=== PATIENT | male | born 1995 | race Caucasian/White ===

== ENCOUNTER 2016-08-26 13:07 | Emergency (ER) | payer OTHER ==
--- NOTE | 2016-08-26 14:13 | DIAGNOSTIC IMAGING REPORT ---
PROCEDURE: XR CHEST 2 VIEW INDICATION: CHEST PAIN TECHNIQUE: PA and lateral views. COMPARISON: None. FINDINGS: Lungs are clear. Heart and mediastinum are normal. Thorax is normal. IMPRESSION: 1. Negative chest.
--- NOTE | 2016-08-26 16:15 | ED CLINICAL REPORT ---
Clinical Report - Physicians/Mid Levels [facility] [address] [place] [address] 08/26/2016 13:09 Patient: PAVEL BONILLA Time Seen: 13:25 Aug 26 2016. Arrived- By ambulance. Historian- patient and EMS personnel. HISTORY OF PRESENT ILLNESS Chief Complaint: DRUG OVERDOSE. Toxic symptoms present in ED with drowsiness. Single drug taken. Multiple drugs taken. No self-injury. No situational problems or alcohol recently. The symptoms are described as mild. (Pt has a history of drug use, meth and heroin smoking in his nature as he reports, and states injected to the right forearm heroin, was found by bystanders given Narcan and arose. Does not previously use iv.). REVIEW OF SYSTEMS No headache, weakness, chest pain, palpitations or diarrhea. All systems otherwise negative, except as recorded above. SOCIAL HISTORY History of drug use. Has social support. Has place to stay. ADDITIONAL NOTES The nursing notes have been reviewed. PHYSICAL EXAM Vital Signs: 08/26/2016 13:10 BP: 113/65. HR: 80. RR: 16. O2 saturation: 100%. Temp: 97.4 F. Appearance: Alert. Eyes: Pupils equal, round and reactive to light. No nystagmus. ENT: Normal ENT inspection. Neck: Normal inspection. CVS: Normal heart rate and rhythm. Heart sounds normal. Respiratory: No respiratory distress. Breath sounds normal. No decreased air movement. Abdomen: Soft and nontender. Skin: (small forearm puncture sonja noted). Neuro: Alert. Oriented X 3. Mood/affect normal. Cranial nerves normal (as tested). No cerebellar findings. No motor deficit. LABS, X-RAYS, AND EKG EKG: EKG time: (1330). No acute process. No acute ischemia. Rate: 74. Normal P waves. Normal ESPERANZA. Normal QRS complex. Normal axis. Normal ST and T waves and QT. The study has been interpreted contemporaneously. The study has been independently viewed by me. The EKG appears to be a good tracing. Chest X-ray: (IMPRESSION: 1. Negative chest. Electronically Final signed by:Rodolfo Vanegas MD 08/26/2016 2:14:01 PM). Laboratory Tests: CBC w Diff: ([facility]: 08/26/2016 13:30) ( [facility] 08/26/2016 13:48) Final results Test Result Flag Units (Reference) WHITE BLOOD COUNT 14.6 H K/uL (4.5-11.5) RED BLOOD COUNT 4.70 M/uL (4.50-5.90) HEMOGLOBIN 13.1 L gm/dL (13.5-17.5) HEMATOCRIT 39.1 L % (41.0-53.0) MEAN CELL VOLUME 83 fL (80-100) MEAN CORPUSCULAR HGB 28 pg (26-34) MEAN CORPUSCULAR HGB CONC 34 g/dL (31-37) RED CELL DISTRIBUTION WIDTH 12.8 % (11.6-14.8) PLATELET COUNT 314 K/uL (150-400) NEUTROPHIL % 81.8 H % (50-75) LYMPH % 10.6 L % (25-40) MONO % 5.4 % (3-14) EOSINOPHIL % 1.7 % (0-4) BASOPHIL % 0.5 % (0-2) PT with INR: ([facility]I: 08/26/2016 13:30) ( [facility] 08/26/2016 13:58) Final results Test Result Flag Units (Reference) INR 1.1 (0.8-1.2) Low Intensity Therapy: INR 1.5-2.0 PT range 18.5-23.1Mod.Intensity Therapy: INR 2.0-3.0 PT range 23.1-31.5High Intensity Therapy: INR 2.5-3.5 PT range 27.4-35.5High Intensity Therapy 2: INR 3.0-4.0 PT range 31.5-39.3 APTT 28 SECONDS (24-34) Urine Drug Screen: ([facility]I: 08/26/2016 14:33) ( [facility] 08/26/2016 15:19) Final results Test Result Flag Units (Reference) AMPHETAMINE/METHAMPHETAMINE POSITIVE H (NEGATIVE) BARBITURATE NEGATIVE (NEGATIVE) BENZODIAZEPINE NEGATIVE (NEGATIVE) CANNABINOID NEGATIVE (NEGATIVE) COCAINE NEGATIVE (NEGATIVE) ECSTASY POSITIVE H (NEGATIVE) METHADONE NEGATIVE (NEGATIVE) OPIATE POSITIVE H (NEGATIVE) The urine drug screen is a qualitative screening test fordrug overdose and abuse. All screen results should beconsidered as presumptive.Drugs screened for are as follows:BenzodiazepinesCocaineAmphetamines/MetamphetaminesTHC (Tetrahydrocannabinol)OpiatesBarbituratesEcstasyMethadonePositive results are unconfirmed. For confirmation, notifythe lab for the specimen to be sent to the reference lab.All confirmations must be performed by a differentmethodology.The ingestion of natural herbal and plant productscontaining Ephedra/Ephedra metabolites can produce in urineone or more substances capable of cross reacting withamphetamine/methamphetamine immunoassays. These testsprovide a preliminary result only. A more specificalternative chemical method must be used to obtain aconfirmed analytical result. Ethyl Alcohol: ([facility]I: 08/26/2016 13:30) ( [facility] 08/26/2016 14:11) Final results Test Result Flag Units (Reference) ETHYL ALCOHOL < 3.0 L mg/dL (3-10) BNP: ([facility]: 08/26/2016 13:30) ( [facility] 08/26/2016 14:12) Final results Test Result Flag Units (Reference) B-TYPE NATRIURETIC PEPTIDE < 5.0 L pg/ml (5-100) CHEM 13 PANEL: ([facility]I: 08/26/2016 13:30) ( [facility] 08/26/2016 15:15) Final results Test Result Flag Units (Reference) GLUCOSE 162 H mg/dL (70-110) BUN 21 H mg/dL (7-18) CREATININE 1.2 mg/dL (0.6-1.3) Estimated GFR >60 mL/min Estimated GFR- >60 mL/min Note: Persistent reduction over 3 months in eGFR<60 mL/min/1.73 m2 defines CKD. Patients with eGFR values>=60 mL/min/1.73 m2 may also have CKD if evidence ofpersistent proteinuria. Additional information may be foundat www.kidney.org. SODIUM 138 mmol/L (136-145) POTASSIUM 3.8 mmol/L (3.5-5.1) CHLORIDE 101 mmol/L (98-107) CARBON DIOXIDE 26 mmol/L (21-32) CALCIUM 8.9 mg/dL (8.5-10.1) TOTAL PROTEIN 7.7 g/dL (6.4-8.2) ALBUMIN 4.0 g/dL (3.3-5.0) BILIRUBIN, TOTAL 0.8 mg/dL (0.0-1.0) ALKALINE PHOSPHATASE 69 U/L (46-116) AST (SGOT) 50 H U/L (15-37) ALT (SGPT) 45 U/L (12-78) MAGNESIUM 2.2 mg/dL (1.8-2.4) TROPONIN I 0.05 ng/mL (0.00-1.5) TROPONIN REFERENCE RANGE:<0.1 NEGATIVE0.1-1.5 INDETERMINANT>1.5 POSITIVE CPK 1433 H U/L (24-260) CK-MB 7.5 H ng/mL (0.5-3.2) %CKMB 0.5 % (0.0-4.0) . PROGRESS AND PROCEDURES Course of Care: Patient here in the ER is alert awake and oriented , drowsy at times, able to ambulate, negative neuro exam. Patient previously does not use injection IV use, however did today. Overdose, arouse with Narcan in the field. No other symptomsin the emergency department. EKG chest x-ray benign, otherwise labs benign beyond leukocytosis, Of unclear etiology, may be stress related or induced. Patient to follow up outpatient. Polysubstance abuse.. 08/26/2016 15:31 BP: 112/88. HR: 65. RR: 14. O2 saturation: 100%. 08/26/2016 15:28 BP: 142/81. HR: 85. RR: 19. O2 saturation: 96%. Pain level now: 0/10. Patient is stable. Symptoms better. Patient/family counseled. Disposition: Discharged. CLINICAL IMPRESSION Accidental multi-drug overdose. (polysubstance). (Electronically signed by Jasmyn Hunt P.A.-C 08/26/2016 16:53)
--- NOTE | 2016-08-26 16:15 | ED CLINICAL REPORT ---
Clinical Report - Physicians/Mid Levels [facility] [address] [place] [address] 08/26/2016 13:09 Patient: PAVEL BONILLA Time Seen: 13:25 Aug 26 2016. Arrived- By ambulance. Historian- patient and EMS personnel. HISTORY OF PRESENT ILLNESS Chief Complaint: DRUG OVERDOSE. Toxic symptoms present in ED with drowsiness. Single drug taken. Multiple drugs taken. No self-injury. No situational problems or alcohol recently. The symptoms are described as mild. (Pt has a history of drug use, meth and heroin smoking in his nature as he reports, and states injected to the right forearm heroin, was found by bystanders given Narcan and arose. Does not previously use iv.). REVIEW OF SYSTEMS No headache, weakness, chest pain, palpitations or diarrhea. All systems otherwise negative, except as recorded above. SOCIAL HISTORY History of drug use. Has social support. Has place to stay. ADDITIONAL NOTES The nursing notes have been reviewed. PHYSICAL EXAM Vital Signs: 08/26/2016 13:10 BP: 113/65. HR: 80. RR: 16. O2 saturation: 100%. Temp: 97.4 F. Appearance: Alert. Eyes: Pupils equal, round and reactive to light. No nystagmus. ENT: Normal ENT inspection. Neck: Normal inspection. CVS: Normal heart rate and rhythm. Heart sounds normal. Respiratory: No respiratory distress. Breath sounds normal. No decreased air movement. Abdomen: Soft and nontender. Skin: (small forearm puncture sonja noted). Neuro: Alert. Oriented X 3. Mood/affect normal. Cranial nerves normal (as tested). No cerebellar findings. No motor deficit. LABS, X-RAYS, AND EKG EKG: EKG time: (1330). No acute process. No acute ischemia. Rate: 74. Normal P waves. Normal ESPERANZA. Normal QRS complex. Normal axis. Normal ST and T waves and QT. The study has been interpreted contemporaneously. The study has been independently viewed by me. The EKG appears to be a good tracing. Chest X-ray: (IMPRESSION: 1. Negative chest. Electronically Final signed by:Rodolfo Vanegas MD 08/26/2016 2:14:01 PM). Laboratory Tests: CBC w Diff: ([facility]I: 08/26/2016 13:30) ( [facility] 08/26/2016 13:48) Final results Test Result Flag Units (Reference) WHITE BLOOD COUNT 14.6 H K/uL (4.5-11.5) RED BLOOD COUNT 4.70 M/uL (4.50-5.90) HEMOGLOBIN 13.1 L gm/dL (13.5-17.5) HEMATOCRIT 39.1 L % (41.0-53.0) MEAN CELL VOLUME 83 fL (80-100) MEAN CORPUSCULAR HGB 28 pg (26-34) MEAN CORPUSCULAR HGB CONC 34 g/dL (31-37) RED CELL DISTRIBUTION WIDTH 12.8 % (11.6-14.8) PLATELET COUNT 314 K/uL (150-400) NEUTROPHIL % 81.8 H % (50-75) LYMPH % 10.6 L % (25-40) MONO % 5.4 % (3-14) EOSINOPHIL % 1.7 % (0-4) BASOPHIL % 0.5 % (0-2) PT with INR: ([facility]I: 08/26/2016 13:30) ( [facility] 08/26/2016 13:58) Final results Test Result Flag Units (Reference) INR 1.1 (0.8-1.2) Low Intensity Therapy: INR 1.5-2.0 PT range 18.5-23.1Mod.Intensity Therapy: INR 2.0-3.0 PT range 23.1-31.5High Intensity Therapy: INR 2.5-3.5 PT range 27.4-35.5High Intensity Therapy 2: INR 3.0-4.0 PT range 31.5-39.3 APTT 28 SECONDS (24-34) Urine Drug Screen: ([facility]I: 08/26/2016 14:33) ( [facility] 08/26/2016 15:19) Final results Test Result Flag Units (Reference) AMPHETAMINE/METHAMPHETAMINE POSITIVE H (NEGATIVE) BARBITURATE NEGATIVE (NEGATIVE) BENZODIAZEPINE NEGATIVE (NEGATIVE) CANNABINOID NEGATIVE (NEGATIVE) COCAINE NEGATIVE (NEGATIVE) ECSTASY POSITIVE H (NEGATIVE) METHADONE NEGATIVE (NEGATIVE) OPIATE POSITIVE H (NEGATIVE) The urine drug screen is a qualitative screening test fordrug overdose and abuse. All screen results should beconsidered as presumptive.Drugs screened for are as follows:BenzodiazepinesCocaineAmphetamines/MetamphetaminesTHC (Tetrahydrocannabinol)OpiatesBarbituratesEcstasyMethadonePositive results are unconfirmed. For confirmation, notifythe lab for the specimen to be sent to the reference lab.All confirmations must be performed by a differentmethodology.The ingestion of natural herbal and plant productscontaining Ephedra/Ephedra metabolites can produce in urineone or more substances capable of cross reacting withamphetamine/methamphetamine immunoassays. These testsprovide a preliminary result only. A more specificalternative chemical method must be used to obtain aconfirmed analytical result. Ethyl Alcohol: (NHI: 08/26/2016 13:30) ( [facility] 08/26/2016 14:11) Final results Test Result Flag Units (Reference) ETHYL ALCOHOL < 3.0 L mg/dL (3-10) BNP: ([facility]I: 08/26/2016 13:30) ( [facility] 08/26/2016 14:12) Final results Test Result Flag Units (Reference) B-TYPE NATRIURETIC PEPTIDE < 5.0 L pg/ml (5-100) CHEM 13 PANEL: ([facility]I: 08/26/2016 13:30) ( [facility] 08/26/2016 15:15) Final results Test Result Flag Units (Reference) GLUCOSE 162 H mg/dL (70-110) BUN 21 H mg/dL (7-18) CREATININE 1.2 mg/dL (0.6-1.3) Estimated GFR >60 mL/min Estimated GFR- >60 mL/min Note: Persistent reduction over 3 months in eGFR<60 mL/min/1.73 m2 defines CKD. Patients with eGFR values>=60 mL/min/1.73 m2 may also have CKD if evidence ofpersistent proteinuria. Additional information may be foundat www.kidney.org. SODIUM 138 mmol/L (136-145) POTASSIUM 3.8 mmol/L (3.5-5.1) CHLORIDE 101 mmol/L (98-107) CARBON DIOXIDE 26 mmol/L (21-32) CALCIUM 8.9 mg/dL (8.5-10.1) TOTAL PROTEIN 7.7 g/dL (6.4-8.2) ALBUMIN 4.0 g/dL (3.3-5.0) BILIRUBIN, TOTAL 0.8 mg/dL (0.0-1.0) ALKALINE PHOSPHATASE 69 U/L (46-116) AST (SGOT) 50 H U/L (15-37) ALT (SGPT) 45 U/L (12-78) MAGNESIUM 2.2 mg/dL (1.8-2.4) TROPONIN I 0.05 ng/mL (0.00-1.5) TROPONIN REFERENCE RANGE:<0.1 NEGATIVE0.1-1.5 INDETERMINANT>1.5 POSITIVE CPK 1433 H U/L (24-260) CK-MB 7.5 H ng/mL (0.5-3.2) %CKMB 0.5 % (0.0-4.0) . PROGRESS AND PROCEDURES Course of Care: Patient here in the ER is alert awake and oriented , drowsy at times, able to ambulate, negative neuro exam. Patient previously does not use injection IV use, however did today. Overdose, arouse with Narcan in the field. No other symptomsin the emergency department. EKG chest x-ray benign, otherwise labs benign beyond leukocytosis, Of unclear etiology, may be stress related or induced. Patient to follow up outpatient. Polysubstance abuse.. 08/26/2016 15:31 BP: 112/88. HR: 65. RR: 14. O2 saturation: 100%. 08/26/2016 15:28 BP: 142/81. HR: 85. RR: 19. O2 saturation: 96%. Pain level now: 0/10. Patient is stable. Symptoms better. Patient/family counseled. Disposition: Discharged. CLINICAL IMPRESSION Accidental multi-drug overdose. (polysubstance). (Electronically signed by Jasmyn Hunt P.A.-C 08/26/2016 16:53)
--- NOTE | 2016-08-26 16:16 | ED ORDER SUMMARY ---
..... Patient: PAVEL BONILLA N OrderSheet [facility] VisitID: [id number] [place] [address] 20y, M Registration Date/Time: 08/26/2016 ORDER SHEET Weight: 81.6 kg Allergies: No Known Drug Allergy GENERAL ORDERS: Chest 2V Urgent (13:08/26/2016 EKoroleva P.A.-C) (13:23 CHernandez R.N.) County Engineer (Continuous) (13:08/26/2016 EKoroleva P.A.-C) (Ack 13:23 CHernandez R.N.) (13:23 CHernandez R.N.) Cardiac Panel Stat (13:08/26/2016 EKoroleva P.A.-C) (13:23 CHernandez R.N.) PT with INR Urgent (13:08/26/2016 EKoroleva P.A.-C) (13:23 CHernandez R.N.) PTT Urgent (13:08/26/2016 EKoroleva P.A.-C) (13:23 CHernandez R.N.) BNP Urgent (13:08/26/2016 EKoroleva P.A.-C) (13:23 CHernandez R.N.) EKG - ER Stat (13:08/26/2016 EKoroleva P.A.-C) (13:23 CHernandez R.N.) Urine Drug Screen Urgent (13:08/26/2016 EKoroleva P.A.-C) (Ack 13:27 LMuller) (13:33 CHernandez R.N.) Ethyl Alcohol Urgent (13:08/26/2016 EKoroleva P.A.-C) (Ack 13:27 LMuller) (13:32 LMuller) MEDICATION ORDERS: IV FLUIDS: IV Saline Lock (13:13 08/26/2016 EKoroleva P.A.-C) (Ack 13:23 CHernandez R.N.) (13:34 CHernandez R.N.) IV NS : initial bolus 1000 mL (1000 mL/hr), then 1000 mL/hr for X1 (NOW); Chapin (13:21 08/26/2016 Gordon Bhatia) (Ack 13:23 Clarita May) (13:48 Clarita May) ORDER SHEET NOTES: [Electronically signed by Ken Parker R.N. (16:38 08/26/2016)] [Electronically signed by Jasmyn Hunt P.A.-C (16:53 08/26/2016)] [Electronically signed by Ada Abrams R.N. (10:01 08/29/2016)] [Electronically signed by Ada Abrams R.N. (12:58 09/03/2016)] [Electronically signed by Ada Abrams R.N. (13:01 09/03/2016)] [Electronically signed by Ada Abrams R.N. (06:45 09/16/2016)] [Electronically signed by Tori White R.N. (07:51 09/25/2016)] [Electronically locked/signed by Ken Parker R.N. (16:38 08/26/2016)]
--- NOTE | 2016-08-26 16:16 | ED NURSING NOTES ---
Clinical Report - Nurses [facility] [place] [address] 08/26/2016 13:09 Patient: PAVEL BONILLA TRIAGE Triage time 13:10. Acuity: LEVEL 2. Chief Complaint: DRUG OVERDOSE (heroin). --13:18 Ken Parker R.N. 13:10 08/26/16. BP: 113/65. HR: 80. RR: 16. O2 saturation: 100% on room air. Temp: 97.4 F. Pain level now: uncertain. --13:18 Ken Parker R.N. Weight: 81.6 kg. Height/Length: 72 inches. BMI: 24.4. --13:18 Ken Parker R.N. Medications None. --13:13 Ken Parker R.N. Medication/allergy information source: the patient and EMS. --13:18 Ken Parker R.N. Allergies No Known Drug Allergy. --13:13 Ken Parker R.N. History Arrived by EMS. Historian: EMS. ( Injected himself on his right forearm with heroin, passed out and bystander performed CPR. Given total of 4mg of Narcan. Now awake and alert c/o extreme thirst.). This occurred today. Treatment MUSIC THERAPIST: (narcan). PAST MEDICAL HX: Unknown. SURGERY HX: Knee surgery. SOCIAL HX: Heavy tobacco smoker (cigarette)- less than 1 pack per day. Regular alcohol use; consumes liquor drinks. (3 days ago). History of drug use: heroin. Recently used drugs just prior to arrival and today. --13:18 Ken Parker R.N. Interventions ID band on patient. To room. --13:18 Ken Parker R.N. PHYSICAL ASSESSMENT To room via stretcher. GENERAL / NEURO / PSYCH: Appears anxious. Behavior appears abnormal. Patient appears calm and cooperative. The patient is disoriented to place. Patient's speech is slurred. He appears to have altered thought processes, verbalized as "feeling outside of my body". Pupillary exam: Right pupil 3mm, round and briskly reactive with accommodation. Left pupil: round and briskly reactive to light directly and with accommodation. RESPIRATORY: Respirations not labored. Breath sounds within normal limits. CVS: Normal sinus rhythm noted. Pulses: right radial 3+ and left radial 3+. Capillary refill less than 2 seconds. GI / : Abdomen soft and nontender. Bowel sounds within normal limits. SKIN: Skin intact. Skin is warm and dry. Skin color is within normal limits. --13:21 Ken Parker R.N. NURSING PROGRESS NOTES Cardiac rhythm: normal sinus rhythm. Oxygen administered at 2 liters. cardiac monitor, pulse oximeter, end tidal CO2 monitor and NIBP monitor placed on patient; threat monitoring analyst- Lead II; monitor alarms on. Head of bed elevated. Reassurance given. Patient identifiers checked. Call light placed in reach. Side rails up x 2. Bed placed in lowest position. Brakes of bed on. Patient ready for evaluation- chart flagged and ED physician and SOCCER COACH notified. --13:22 Ken Parker R.N. 13:29 08/26/2016 Site #1 started via IV in the left antecubital space with an 20g angiocath; one attempt. Blood drawn: rainbow set. Labeled in the presence of the patient and sent to the lab. Saline lock flushed with 10 mL saline. --13:34 Ken Parker R.N. Checked patient name and birthdate: patient confirmed. Blood samples drawn from the left antecubital space peripheral IV site by nurse ; labeled in presence of the patient and sent to lab: rainbow set: cardiac enzymes (1st set). Line flushed with 10 mL normal saline post blood draw. --13:35 Ken Parker R.N. 13:47 08/26/2016 Started IV Fluids IV NS (Saline); bolus of 1000 mL over 1 hour(s) via site #1 via IV pump. Allergies verified and confirmed 5 rights. IV patency established. IV site checked: no pain, redness, or swelling. IV flushed thoroughly pre- and post-medication administration. --13:48 Ken Parker R.N. 13:51 08/26/16. BP: 118/67. HR: 67. RR: 14. O2 saturation: 96%. --13:53 Ken Parker R.N. Cardiac rhythm: normal sinus rhythm. Reassessment after intervention (xray). Overall patient status is the same- he states feels the same. GENERAL / NEURO / PSYCH: Patient is calm and cooperative. Alert. Decreased awareness opens eyes to voice; drowsy. RESPIRATORY: No respiratory distress. GI / : No vomiting noted. SKIN: Skin is warm and dry. Skin color within normal limits. --13:53 Ken Parker R.N. EKG time: (1330). EKG was performed by a tech and shown to the PA. --14:09 Christiane Cordon, ER Tech1 14:19 08/26/16. BP: 107/67. HR: 94. RR: 21. O2 saturation: 99%. --14:20 Ken Parker R.N. ( Pt attempting to urinate on a urinal to provide urine sample, standing at the bedside.). GENERAL / NEURO / PSYCH: Patient is calm and cooperative. Alert. RESPIRATORY: No respiratory distress. GI / : No vomiting noted. SKIN: Skin is warm and dry. --14:20 Ken Parker R.N. 14:32 08/26/16. BP: 115/63. HR: 65. RR: 15. O2 saturation: 98%. --14:34 Ken Parker R.N. Cardiac rhythm: normal sinus rhythm. Urine toxicology screen obtained and sent to lab. Reassessment after fluids administered. Overall patient status is improved- he states feels better. ( Patient walked independently to the restroom and was able to void. Urine sent to the lab.). GENERAL / NEURO / PSYCH: Patient is calm and cooperative. Alert. Decreased awareness disoriented to place; opens eyes to voice; drowsy. RESPIRATORY: No respiratory distress. GI / : No vomiting noted. SKIN: Skin is warm. Skin color within normal limits. --14:34 Ken Parker R.N. 14:48 08/26/2016 IV Fluids IV NS Discontinued: bag #1 infused. Total amount infused: 1000 mL. IV patency established. IV site checked: no pain, redness, or swelling. IV flushed thoroughly. --14:48 Ken Parker R.N. 15:28 08/26/16. BP: 142/81. HR: 85. RR: 19. O2 saturation: 96%. Pain level now: 0/10. --15:29 Ken Parker R.N. Reassessment after intervention (IV start). Overall patient status is the same- he states feels the same. GENERAL / NEURO / PSYCH: Patient is calm and cooperative. Alert. Oriented X 4. RESPIRATORY: The patient reports difficulty breathing is still present and currently moderate in severity. SKIN: Skin is warm and dry. Skin color within normal limits. --15:29 Ken Parker R.N. Cardiac rhythm: normal sinus rhythm. Overall patient status is improved- he states feels the same. GENERAL / NEURO / PSYCH: Patient is calm and cooperative. Alert. RESPIRATORY: No respiratory distress. GI / : No vomiting noted. SKIN: Skin is warm and dry. Skin color within normal limits. --15:32 Ken Parker R.N. 15:31 08/26/16. BP: 112/88. HR: 65. RR: 14. O2 saturation: 100%. --15:32 Ken Parker R.N. 16:01 08/26/16. BP: 105/64. HR: 74. RR: 14. O2 saturation: 100%. --16:02 Ken Parker R.N. Cardiac rhythm: normal sinus rhythm. The patient is resting quietly and sleeping. GENERAL / NEURO / PSYCH: Patient is calm and cooperative. RESPIRATORY: No respiratory distress. GI / : No vomiting noted. SKIN: Skin is warm. Skin color within normal limits. --16:02 Ken Parker R.N. 16:22 08/26/2016 IV Saline Lock Drip IV Discontinued: discontinued upon discharge. IV patency established. IV site checked: no pain, redness, or swelling. IV flushed thoroughly. --16:22 Ken Parker R.N. 16:23 08/26/2016 Site #1 removed upon discharge. Manual pressure applied. --16:23 Ken Parker R.N. Reassessment after fluids administered and intervention. ( stogie packer and SOCCER COACH aware pt is unable to provide information on who will pick him up. Patient able to walk and ambulate to bathroom.). GENERAL / NEURO / PSYCH: Patient is calm and cooperative. Alert. Decreased awareness disoriented to place; drowsy. RESPIRATORY: No respiratory distress. GI / : No vomiting noted. SKIN: Skin is warm and dry. Skin color within normal limits. --16:25 Ken Parker R.N. 16:22 08/26/16. BP: 122/78. HR: 72. RR: 16. O2 saturation: 100%. Temp: 98 F. Pain level now: 0/10. --16:25 Ken Parker R.N. DISPOSITION / DISCHARGE Cardiac rhythm: normal sinus rhythm. Condition at departure: stable. ( pt able to walk and ambulate steady on his gait, imaging tech walked him to ). Discharge instructions provided and reviewed with the patient. Patient verbalized understanding. Written instructions provided in Welsh. The patient was discharged by the nurse practitioner. He was discharged home. He left the Emergency Department ambulatory. --16:37 Ken Parker R.N. 16:35 08/26/16. BP: 132/75. HR: 68. RR: 16. O2 saturation: 100%. Temp: 97.8 F. Pain level now: 0/10. --16:37 Ken Parker R.N. ( ER nurse discharge planner Chu aware and present when pt left the room). --16:37 Ken Parker R.N. Locked/Released at 09/25/2016 7:51 by Tori White R.N.
--- NOTE | 2016-08-26 16:16 | ED ORDER SUMMARY ---
..... Patient: PAVEL BONILLA N OrderSheet [facility] VisitID: [id number] [place] [address] 20y, M Registration Date/Time: 08/26/2016 ORDER SHEET Weight: 81.6 kg Allergies: No Known Drug Allergy GENERAL ORDERS: Chest 2V Urgent (13:08/26/2016 EKoroleva P.A.-C) (13:23 CHernandez R.N.) Central Processing Technician (Continuous) (13:08/26/2016 EKoroleva P.A.-C) (Ack 13:23 CHernandez R.N.) (13:23 CHernandez R.N.) Cardiac Panel Stat (13:08/26/2016 EKoroleva P.A.-C) (13:23 CHernandez R.N.) PT with INR Urgent (13:08/26/2016 EKoroleva P.A.-C) (13:23 CHernandez R.N.) PTT Urgent (13:08/26/2016 EKoroleva P.A.-C) (13:23 CHernandez R.N.) BNP Urgent (13:08/26/2016 EKoroleva P.A.-C) (13:23 CHernandez R.N.) EKG - ER Stat (13:08/26/2016 EKoroleva P.A.-C) (13:23 CHernandez R.N.) Urine Drug Screen Urgent (13:08/26/2016 EKoroleva P.A.-C) (Ack 13:27 LMuller) (13:33 CHernandez R.N.) Ethyl Alcohol Urgent (13:08/26/2016 EKoroleva P.A.-C) (Ack 13:27 LMuller) (13:32 LMuller) MEDICATION ORDERS: IV FLUIDS: IV Saline Lock (13:13 08/26/2016 EKoroleva P.A.-C) (Ack 13:23 CHernandez R.N.) (13:34 CHernandez R.N.) IV NS : initial bolus 1000 mL (1000 mL/hr), then 1000 mL/hr for X1 (NOW); Chapin (13:21 08/26/2016 Gordon Bhatia) (Ack 13:23 Clarita May) (13:48 Clarita May) ORDER SHEET NOTES: [Electronically signed by Ken Parker R.N. (16:38 08/26/2016)] [Electronically signed by Jasmyn Hunt P.A.-C (16:53 08/26/2016)] [Electronically signed by Ada Abrams R.N. (10:01 08/29/2016)] [Electronically signed by Ada Abrams R.N. (12:58 09/03/2016)] [Electronically signed by Ada Abrams R.N. (13:01 09/03/2016)] [Electronically signed by Ada Abrams R.N. (06:45 09/16/2016)] [Electronically signed by Tori White R.N. (07:51 09/25/2016)] [Electronically locked/signed by Ken Parker R.N. (16:38 08/26/2016)]
--- NOTE | 2016-08-26 16:16 | ED NURSING NOTES ---
Clinical Report - Nurses [facility] [place] [address] 08/26/2016 13:09 Patient: PAVEL BONILLA TRIAGE Triage time 13:10. Acuity: LEVEL 2. Chief Complaint: DRUG OVERDOSE (heroin). --13:18 Ken Parker R.N. 13:10 08/26/16. BP: 113/65. HR: 80. RR: 16. O2 saturation: 100% on room air. Temp: 97.4 F. Pain level now: uncertain. --13:18 Ken Parker R.N. Weight: 81.6 kg. Height/Length: 72 inches. BMI: 24.4. --13:18 Ken Parker R.N. Medications None. --13:13 Ken Parker R.N. Medication/allergy information source: the patient and EMS. --13:18 Ken Parker R.N. Allergies No Known Drug Allergy. --13:13 Ken Parker R.N. History Arrived by EMS. Historian: EMS. ( Injected himself on his right forearm with heroin, passed out and bystander performed CPR. Given total of 4mg of Narcan. Now awake and alert c/o extreme thirst.). This occurred today. 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 PAST MEDICAL HX: Unknown. SURGERY HX: Knee surgery. SOCIAL HX: Heavy tobacco smoker (cigarette)- less than 1 pack per day. Regular alcohol use; consumes liquor drinks. (3 days ago). History of drug use: heroin. Recently used drugs just prior to arrival and today. --13:18 Ken Parker R.N. Interventions ID band on patient. To room. --13:18 Ken Parker R.N. PHYSICAL ASSESSMENT To room via stretcher. GENERAL / NEURO / PSYCH: Appears anxious. Behavior appears abnormal. Patient appears calm and cooperative. The patient is disoriented to place. Patient's speech is slurred. He appears to have altered thought processes, verbalized as "feeling outside of my body". Pupillary exam: Right pupil 3mm, round and briskly reactive with accommodation. Left pupil: round and briskly reactive to light directly and with accommodation. RESPIRATORY: Respirations not labored. Breath sounds within normal limits. CVS: Normal sinus rhythm noted. Pulses: right radial 3+ and left radial 3+. Capillary refill less than 2 seconds. GI / : Abdomen soft and nontender. Bowel sounds within normal limits. SKIN: Skin intact. Skin is warm and dry. Skin color is within normal limits. --13:21 Ken Parekr R.N. NURSING PROGRESS NOTES Cardiac rhythm: normal sinus rhythm. Oxygen administered at 2 liters. manager monitoring, pulse oximeter, end tidal CO2 monitor and NIBP monitor placed on patient; clinical research monitor- Lead II; monitor alarms on. Head of bed elevated. Reassurance given. Patient identifiers checked. Call light placed in reach. Side rails up x 2. Bed placed in lowest position. Brakes of bed on. Patient ready for evaluation- chart flagged and ED physician and PARIMUTUEL TICKET CHECKER notified. --13:22 Ken Parker R.N. 13:29 08/26/2016 Site #1 started via IV in the left antecubital space with an 20g angiocath; one attempt. Blood drawn: rainbow set. Labeled in the presence of the patient and sent to the lab. Saline lock flushed with 10 mL saline. --13:34 Ken Parker R.N. Checked patient name and birthdate: patient confirmed. Blood samples drawn from the left antecubital space peripheral IV site by nurse ; labeled in presence of the patient and sent to lab: rainbow set: cardiac enzymes (1st set). Line flushed with 10 mL normal saline post blood draw. --13:35 Ken Parker R.N. 13:47 08/26/2016 Started IV Fluids IV NS (Saline); bolus of 1000 mL over 1 hour(s) via site #1 via IV pump. Allergies verified and confirmed 5 rights. IV patency established. IV site checked: no pain, redness, or swelling. IV flushed thoroughly pre- and post-medication administration. --13:48 Ken Parker R.N. 13:51 08/26/16. BP: 118/67. HR: 67. RR: 14. O2 saturation: 96%. --13:53 Ken Parker R.N. Cardiac rhythm: normal sinus rhythm. Reassessment after intervention (xray). Overall patient status is the same- he states feels the same. GENERAL / NEURO / PSYCH: Patient is calm and cooperative. Alert. Decreased awareness opens eyes to voice; drowsy. RESPIRATORY: No respiratory distress. GI / : No vomiting noted. SKIN: Skin is warm and dry. Skin color within normal limits. --13:53 Ken Parker R.N. EKG time: (1330). EKG was performed by a tech and shown to the PA. --14:09 Christiane Cordon, ER Tech1 14:19 08/26/16. BP: 107/67. HR: 94. RR: 21. O2 saturation: 99%. --14:20 Ken Parker R.N. ( Pt attempting to urinate on a urinal to provide urine sample, standing at the bedside.). GENERAL / NEURO / PSYCH: Patient is calm and cooperative. Alert. RESPIRATORY: No respiratory distress. GI / : No vomiting noted. SKIN: Skin is warm and dry. --14:20 Ken Parker R.N. 14:32 08/26/16. BP: 115/63. HR: 65. RR: 15. O2 saturation: 98%. --14:34 Ken Parker R.N. Cardiac rhythm: normal sinus rhythm. Urine toxicology screen obtained and sent to lab. Reassessment after fluids administered. Overall patient status is improved- he states feels better. ( Patient walked independently to the restroom and was able to void. Urine sent to the lab.). GENERAL / NEURO / PSYCH: Patient is calm and cooperative. Alert. Decreased awareness disoriented to place; opens eyes to voice; drowsy. RESPIRATORY: No respiratory distress. GI / : No vomiting noted. SKIN: Skin is warm. Skin color within normal limits. --14:34 Ken Parker R.N. 14:48 08/26/2016 IV Fluids IV NS Discontinued: bag #1 infused. Total amount infused: 1000 mL. IV patency established. IV site checked: no pain, redness, or swelling. IV flushed thoroughly. --14:48 Ken Parker R.N. 15:28 08/26/16. BP: 142/81. HR: 85. RR: 19. O2 saturation: 96%. Pain level now: 0/10. --15:29 Ken Parker R.N. Reassessment after intervention (IV start). Overall patient status is the same- he states feels the same. GENERAL / NEURO / PSYCH: Patient is calm and cooperative. Alert. Oriented X 4. RESPIRATORY: The patient reports difficulty breathing is still present and currently moderate in severity. SKIN: Skin is warm and dry. Skin color within normal limits. --15:29 Ken Parker R.N. Cardiac rhythm: normal sinus rhythm. Overall patient status is improved- he states feels the same. GENERAL / NEURO / PSYCH: Patient is calm and cooperative. Alert. RESPIRATORY: No respiratory distress. GI / : No vomiting noted. SKIN: Skin is warm and dry. Skin color within normal limits. --15:32 Ken Parker R.N. 15:31 08/26/16. BP: 112/88. HR: 65. RR: 14. O2 saturation: 100%. --15:32 Ken Parker R.N. 16:01 08/26/16. BP: 105/64. HR: 74. RR: 14. O2 saturation: 100%. --16:02 Ken Parker R.N. Cardiac rhythm: normal sinus rhythm. The patient is resting quietly and sleeping. GENERAL / NEURO / PSYCH: Patient is calm and cooperative. RESPIRATORY: No respiratory distress. GI / : No vomiting noted. SKIN: Skin is warm. Skin color within normal limits. --16:02 Ken Parker R.N. 16:22 08/26/2016 IV Saline Lock Drip IV Discontinued: discontinued upon discharge. IV patency established. IV site checked: no pain, redness, or swelling. IV flushed thoroughly. --16:22 Ken Parker R.N. 16:23 08/26/2016 Site #1 removed upon discharge. Manual pressure applied. --16:23 Ken Parker R.N. Reassessment after fluids administered and intervention. ( employee relations representative and PARIMUTUEL TICKET CHECKER aware pt is unable to provide information on who will pick him up. Patient able to walk and ambulate to bathroom.). GENERAL / NEURO / PSYCH: Patient is calm and cooperative. Alert. Decreased awareness disoriented to place; drowsy. RESPIRATORY: No respiratory distress. GI / : No vomiting noted. SKIN: Skin is warm and dry. Skin color within normal limits. --16:25 Ken Parker R.N. 16:22 08/26/16. BP: 122/78. HR: 72. RR: 16. O2 saturation: 100%. Temp: 98 F. Pain level now: 0/10. --16:25 Ken Parker R.N. DISPOSITION / DISCHARGE Cardiac rhythm: normal sinus rhythm. Condition at departure: stable. ( pt able to walk and ambulate steady on his gait, chemical laboratory technician walked him to ). Discharge instructions provided and reviewed with the patient. Patient verbalized understanding. Written instructions provided in Croatian. The patient was discharged by the nurse practitioner. He was discharged home. He left the Emergency Department ambulatory. --16:37 Ken Parker R.N. 16:35 08/26/16. BP: 132/75. HR: 68. RR: 16. O2 saturation: 100%. Temp: 97.8 F. Pain level now: 0/10. --16:37 Ken Parker R.N. ( ER home economics teacher Chu aware and present when pt left the room). --16:37 Ken Parker R.N. Locked/Released at 09/25/2016 7:51 by Tori White R.N.
--- NOTE | 2016-09-25 07:51 | ED DISCHARGE INSTRUCTIONS ---
Patient: PAVEL BONILLA General Instructions [facility] VisitID: [id number] [place] [address] 20y, M Registration Date/Time: 08/26/2016 Accidental multi-drug overdose. (polysubstance). ADDITIONAL INFORMATION Accidental Ingestion:Non-Toxic [Adult] You have been evaluated and treated for taking too much of a medicine or swallowing a chemical product. There is no sign of toxic effect at this time. It is very unlikely that any new symptoms will appear. As a safeguard, you must be alert for symptoms during the next 24 hours (see below). The exact symptom will depend on what was swallowed. Home Care: If LIQUID CHARCOAL was given to neutralize what was swallowed, it will cause a black color to the stools for 1-2 days. Usually, a laxative (sorbitol) is given with charcoal to speed the removal of any toxins from the intestinal tract. This may cause diarrhea for up to 24 hours. If no laxative was given with charcoal, you may get constipated. If this occurs, you may take an pkla-kak-svhkesi laxative such as Dulcolax pills or suppository. Prevention: Keep medicines, pesticides, and other household chemicals in their original containers. Clearly sonja all harmful products if a different bottle is used. Follow Up with your doctor if all symptoms do not resolve within 24 hours or if constipation is not relieved by one or two doses of laxatives. Get Prompt Medical Attention if any of the following occur: Excess drowsiness or inability to be awakened Rapid heart beat, shakiness or seizure Fast breathing (over 25 breaths/minute) or slow breathing (less than 8 breaths/minute) Feeling shortness of breath Fever of 100.4F (38C) or higher, or as directed by your healthcare provider Vomiting or diarrhea for more than 24 hours Blood in stools or vomit (black or red color) Chest or abdominal pain Dizziness, weakness or fainting You have been given the following additional information: Overdose, Accidental (Adult) (Electronically signed by Jasmyn Hunt P.A.-C 08/26/2016 16:53)
--- NOTE | 2016-09-25 07:51 | ED DISCHARGE INSTRUCTIONS ---
Patient: PAVEL BONILLA General Instructions [facility] VisitID: [id number] [place] [address] 20y, M Registration Date/Time: 08/26/2016 Accidental multi-drug overdose. (polysubstance). ADDITIONAL INFORMATION Accidental Ingestion:Non-Toxic [Adult] You have been evaluated and treated for taking too much of a medicine or swallowing a chemical product. There is no sign of toxic effect at this time. It is very unlikely that any new symptoms will appear. As a safeguard, you must be alert for symptoms during the next 24 hours (see below). The exact symptom will depend on what was swallowed. Home Care: If LIQUID CHARCOAL was given to neutralize what was swallowed, it will cause a black color to the stools for 1-2 days. Usually, a laxative (sorbitol) is given with charcoal to speed the removal of any toxins from the intestinal tract. This may cause diarrhea for up to 24 hours. If no laxative was given with charcoal, you may get constipated. If this occurs, you may take an iyos-kcn-qezmblu laxative such as Dulcolax pills or suppository. Prevention: Keep medicines, pesticides, and other household chemicals in their original containers. Clearly sonja all harmful products if a different bottle is used. Follow Up with your doctor if all symptoms do not resolve within 24 hours or if constipation is not relieved by one or two doses of laxatives. Get Prompt Medical Attention if any of the following occur: Excess drowsiness or inability to be awakened Rapid heart beat, shakiness or seizure Fast breathing (over 25 breaths/minute) or slow breathing (less than 8 breaths/minute) Feeling shortness of breath Fever of 100.4F (38C) or higher, or as directed by your healthcare provider Vomiting or diarrhea for more than 24 hours Blood in stools or vomit (black or red color) Chest or abdominal pain Dizziness, weakness or fainting You have been given the following additional information: Overdose, Accidental (Adult) (Electronically signed by Jasmyn Hunt P.A.-C 08/26/2016 16:53)
--- NOTE | 2016-09-25 07:52 | ED MED RECONCILIATION SUMMARY ---
Patient: FAUSTO BONILLAJEWELS Lanny Medication Reconciliation Report [facility] VisitID: [id number] [address] [place] [address] 20y, M Registration Date/Time: 08/26/2016 Weight: 81.6 kg Height/Length: 72 in. BMI: 24.4 ALLERGIES: No Known Drug Allergy The patient's Home Medications are listed below: NONE. The source(s) of the original Home Medication information: EMS patient The following Medications were given to the patient in the Emergency Department: IV NS IV Fluids bolus 1000 mL over 1 hour(s), administered: 08/26/2016 1:47:00 PM The following Medications were prescribed to the patient: None.
--- NOTE | 2016-09-25 07:52 | ED MED RECONCILIATION SUMMARY ---
Patient: FAUSTO BONILLAJEWELS Lanny Medication Reconciliation Report [facility] VisitID: [id number] [address] [place] [address] 20y, M Registration Date/Time: 08/26/2016 Weight: 81.6 kg Height/Length: 72 in. BMI: 24.4 ALLERGIES: No Known Drug Allergy The patient's Home Medications are listed below: NONE. The source(s) of the original Home Medication information: EMS patient The following Medications were given to the patient in the Emergency Department: IV NS IV Fluids bolus 1000 mL over 1 hour(s), administered: 08/26/2016 1:47:00 PM The following Medications were prescribed to the patient: None.
--- NOTE | 2016-09-25 07:52 | ED MAR SUMMARY ---
..... Medication Administration Record [facility] [address] [place] [address] Patient: PAVEL BONILLA Visit ID: [id number] 20y, M Weight: 81.6 kg Height/Length: 72 in BMI: 24.4 ALLERGIES: No Known Drug Allergy Start 13:47 08/26/2016 Ken Parker R.N., Stop 14:48 08/26/2016 Ken Parker R.N. Medication Administered: IV NS (SALINE), Dose: IV Fluids, Bolus: 1000 mL over 1 hour(s), Site: #1 left AC. Medication Ordered: IV NS : initial bolus 1000 mL (1000 mL/hr), then 1000 mL/hr for X1 (NOW); Chapin.
--- NOTE | 2016-09-25 07:52 | ED MAR SUMMARY ---
..... Medication Administration Record [facility] [address] [place] [address] Patient: PAVEL BONILLA Visit ID: [id number] 20y, M Weight: 81.6 kg Height/Length: 72 in BMI: 24.4 ALLERGIES: No Known Drug Allergy Start 13:47 08/26/2016 Ken Parker R.N., Stop 14:48 08/26/2016 Ken Parker R.N. Medication Administered: IV NS (SALINE), Dose: IV Fluids, Bolus: 1000 mL over 1 hour(s), Site: #1 left AC. Medication Ordered: IV NS : initial bolus 1000 mL (1000 mL/hr), then 1000 mL/hr for X1 (NOW); Chapin.
== END 2016-08-26 16:35 | disposition home or self-care (01) ==
LOC: ED SRH 13:07
DX: T50.901A Poisoning by unspecified drugs, medicaments and biological substances, accidental (unintentional), initial encounter (principal); F17.210 Nicotine dependence, cigarettes, uncomplicated
CPT/HCPCS: 90100; 90616; 90617; 91320; 92010; 92610; 92720; 92760; 92761; 92762; 92763; 92764; 92765; 92766; 92767; 94001; 94060; 95059